=== PATIENT | female | born 1965 | race Caucasian/White ===

== ENCOUNTER 2016-09-04 10:30 | Outpatient (CLI) | payer OTHER ==
--- NOTE | 2016-09-04 12:15 | Mammography Report ---
Screening mammogram: Routine views demonstrates an intermediate density fibroglandular pattern. Nodular densities are identified bilaterally. They appear well-circumscribed and not all of them are clearly seen in both projections. No calcifications identified. The breast pattern is not otherwise remarkable CAD used. Impression: Bilateral nodules. The patient's prior studies for comparison. Additional imaging may be necessary depending on comparison exam. If a comparison report is not received within 30 days additional compression imaging and possible ultrasound needed. BI-RADS CATEGORY: 0 = Needs additional imaging evaluation ACR BI-RADS MAMMOGRAPHIC CODES: 0 = Needs additional imaging evaluation; 1 = Negative; 2 = Benign; 3 = Probably benign; 4 = Suspicious; 5 = Malignant; 6 = Known biopsy-proven malignancy COMMENT: 1. Dense breast tissue, i.e., adenosis, fibrocystic changes, etc., may obscure an underlying neoplasm. 2. Approximately 10% of cancers are not detected with mammography. 3. A negative mammography report should not delay biopsy if a clinically suspicious mass is present.
== END 2016-09-04 10:31 | disposition home or self-care (01) ==
LOC: SPVWC 10:30
PROVIDERS: ATTEND Specialist
DX: Z12.31 Encounter for screening mammogram for malignant neoplasm of breast (principal)
CPT/HCPCS: 77067; G0202